=== PATIENT | female | born 1975 | race Caucasian/White ===

== ENCOUNTER 2019-04-21 12:57 | Outpatient (RCR) | payer OTHER, SELFPAY ==
[2019-04-21 13:08] VITALS: BMI 38.7
== END 2019-07-20 23:59 | disposition home or self-care (01) ==
LOC: ANHDMC 12:57
PROVIDERS: PCP Family Medicine; Visit Provider Nurse Practitioner Family
DX: E66.9 Obesity, unspecified (principal); Z71.3 Dietary counseling and surveillance
CPT/HCPCS: 97802

== ENCOUNTER 2019-08-02 04:57 | Emergency (ER) | payer BC, SELFPAY ==
[2019-08-02 05:09] VITALS: BP 135/67; PULSE 111; RESP 12; TEMP 36.6; O2SAT 97
[2019-08-02] MEDS: KETOROLAC (*BKC) 60 MG/2 ML VIAL IM (05:35)
--- NOTE | 2019-08-02 05:59 | ED.BACK ---
HPI - Back Pain/Injury General Chief Complaint: Back Pain/Injury Stated Complaint: lower back pain Time Seen by Provider: 08/02/19 05:18 Source: patient Mode of arrival: ambulatory Limitations: no limitations History of Present Illness HPI Narrative: Patient is a 44-year-old female who presents to the emergency department with complaint of left-sided sciatica. Patient reports prior history. Patient reports onset of symptoms at 4 PM yesterday. She denies any known injury. Pain is radiating down her left leg to about the knee level of her knee. She denies any numbness, weakness, or fever, or bowel/bladder dysfunction. Pain is worse with walking, certain positions, and movement. MD elicited complaint: back pain Pertinent past history: prior back pain Onset (ago): day(s) (1) Timing: constant Severity: similar to previous episodes Quality: sharp Location: left lower back Radiation: left upper leg Exacerbating factors: movement and walking Related Data Home Medications Medication Instructions Recorded Confirmed gabapentin 08/02/19 Allergies Allergy/AdvReac Type Severity Reaction Status Date / Time No Known Allergies Allergy Unknown Verified 08/02/19 06:11 Review of Systems Review of Systems: All systems reviewed & are unremarkable except as noted in HPI and below PMFSH Past Medical History Medical History (Updated 08/02/19 @ 06:13 by Deanna Flores MD) Depression Fibromyalgia Hypertension IBS (irritable bowel syndrome) Rheumatoid arthritis Surgical History Surgical History (Updated 08/02/19 @ 06:08 by Deanna Flores MD) History of tonsillectomy Social History Social History (Updated 08/02/19 @ 06:08 by Deanna Flores MD) Smoking status: Current every day smoker Tobacco type: cigarettes Exam Const: General: cooperative, no acute distress and alert Nutritional Appearance: well nourished Orientation/consciousness: patient oriented x3 Limitations: no limitations HENMT: Mouth: Yes lip normal and Yes moist mucous membranes Resp: Effort & Inspection: normal respiratory effort Auscultation: clear to auscultation bilaterally Cardio: Rate: regular rate Rhythm: regular rhythm Back/Spine/Pelvis: Thoracic/Lumbar Spine: pain with thoraco-lumbar ROM and lumbar spinal tenderness (Mild lower) Skin: General skin exam: normal color Neuro: General: patient oriented x3 Cognition (Neuro): normal cognition Speech: normal speech Motor exam (neuro): 5/5 motor strength present throughout Sensory Exam: normal sensation Deep tendon reflexes (DTR's): Right patellar reflex intensity grade: 2+, Left patellar reflex intensity grade: 2+, Right ankle reflex intensity grade: 2+ and Left ankle reflex intensity grade: 2+ Extrem: General: normal to inspection, full ROM and no clubbing, cyanosis or edema Psych: Mental Status: mental status grossly normal Affect: normal affect Attitude: cooperative Course Course Emergency Course: Patient given Toradol and Valium. Counseled on primary care follow-up to discuss physical therapy referral to help with symptom management. Vital Signs Vital signs: Vital Signs Temperature 97.8 F 08/02/19 05:09 Pulse Rate 111 H 08/02/19 05:09 Respiratory Rate 12 08/02/19 05:09 Blood Pressure 135/67 08/02/19 05:09 Pulse Oximetry 97 08/02/19 05:09 Temperature 97.8 F 08/02/19 05:09 Pulse Rate 111 H 08/02/19 05:09 Respiratory Rate 12 08/02/19 05:09 Blood Pressure 135/67 08/02/19 05:09 Pulse Oximetry 97 08/02/19 05:09 Critical Care Time Critical Care Time Critical Care Time: No Discharge Plan Discharge Clinical Impression: Sciatica Qualifiers: Laterality: left Qualified Code(s): M54.32 - Sciatica, left side Patient Disposition: Home, Self-Care Condition: Stable Instructions: Sciatica (ED) Additional Instructions: Continue home medications. May take acetaminophen 1000 mg every 6 hours as needed for pain. Amadou
[2019-08-02 06:28] VITALS: BP 131/69; PULSE 100; RESP 15; TEMP 37.1; O2SAT 98
== END 2019-08-02 06:25 | disposition home or self-care (01) ==
PROVIDERS: Emergency Provider Emergency Medicine; PCP Family Medicine
DX: M54.42 Lumbago with sciatica, left side (principal); M79.7 Fibromyalgia; I10 Essential (primary) hypertension; K58.9 Irritable bowel syndrome, unspecified; F17.210 Nicotine dependence, cigarettes, uncomplicated; M06.9 Rheumatoid arthritis, unspecified
CPT/HCPCS: 96372; 99284; J1885; J3360

== ENCOUNTER 2020-05-02 11:42 | Outpatient (CLI) | payer BC, SELFPAY ==
--- NOTE | ~2020-05-02 | XR_ITS ---
EXAMINATION: XR chest 2V DATE: 05/02/2020 12:10 INDICATION: Shortness of breath, cough, and chest pain. TECHNIQUE: Frontal and lateral views of the chest were obtained. COMPARISON: None. FINDINGS: The chest demonstrates clear lungs without pneumonia, pleural effusion, or pneumothorax. Th e heart size is normal. IMPRESSION: 1. No acute cardiopulmonary disease. Reviewed, dictated and finalized at location A. COAT WIPER
== END 2020-05-02 11:43 | disposition home or self-care (01) ==
PROVIDERS: PCP Nurse Practitioner Family
DX: R06.02 Shortness of breath (principal); U07.1 COVID-19
CPT/HCPCS: 71046

== ENCOUNTER 2023-04-04 17:20 | Emergency (ER) | payer BC, SELFPAY ==
[2023-04-04] VITALS (11 sets, daily range): BP systolic 91–113; BP diastolic 51–80; PULSE 81–109; RESP 14–22; TEMP 36.7; O2SAT 96–99
--- NOTE | ~2023-04-04 | XR_ITS ---
EXAMINATION: XR chest 1V DATE: 04/04/2023 21:53 INDICATION: Right-sided abdominal pain TECHNIQUE: frontal view of the chest was obtained. COMPARISON: Chest radiograph dated 05/02/2020 FINDINGS: Right internal jugular central venous port catheter with distal tip at the superior cavoatrial juncti on. There are few bilateral pulmonary nodules consistent with metastatic disease. No other airspace o pacities, pulmonary edema, pleural effusion or pneumothorax. The cardiomediastinal silhouette is norm al. Visualized bones and soft tissues are unremarkable. IMPRESSION: 1. A few scattered bilateral pulmonary nodules consistent with metastatic disease. No other acute car diopulmonary disease. Reviewed, dictated and finalized at location A. PICKER MACHINE OPERATOR IMPRESSION: 1. A few scattered bilateral pulmonary nodules consistent with metastatic disea se. No other acute cardiopulmonary disease.
--- NOTE | ~2023-04-04 | CT_ITS ---
EXAMINATION: CT abdomen pelvis w con DATE: 04/04/2023 21:47 INDICATION: Right-sided abdominal pain TECHNIQUE: Computed tomography (CT) of the abdomen and pelvis was performed with 100 mL Omnipaque-350 intravenous contrast. Automated exposure control and iterative reconstruction technique were employe d. The dose-length product was 701.93 mGy-cm. COMPARISON: None FINDINGS: There are multiple pulmonary nodules in the bilateral lower lungs, the largest in the left lower lobe measuring up to 1.4 cm and concerning for metastatic disease. There are multiple hypoenhancing kuldeep s in the right hepatic lobe, the largest measuring 7.2 x 5.1 cm which are also concerning for metasta tic disease. Some of the decreased attenuation the right hepatic lobe has a more branching appearance which could represent secondary partial obstruction and dilation. One of these tubular regions appea rs to communicate with the perihepatic fluid collection and could not exclude either superinfection w ith abscess or bile leak with biloma. There is a small perihepatic fluid collection, potentially subc apsular along the posterolateral margin of the right hepatic lobe. Gallbladder, pancreas and bilatera l adrenal glands are normal. Mild splenomegaly measuring 13.5 cm craniocaudal length. There is a smal l metallic density situated between the head of the pancreas and the gastric pylorus potentially an e mbolization coil along the gastroduodenal artery. Bilateral kidneys are normal. There is a small fill ing defect with central calcification measuring 2 cm in length and up to 8 mm in maximal diameter wit hin the infrarenal inferior vena cava suspicious for thrombosis. Bladder is normal. T-shaped IUD in e xpected position within the anteverted uterus. Bilateral ovarian cysts/follicles, the largest on the right measuring 3.3 cm. Normal appendix. No bowel obstruction. There is asymmetric rectal wall thicke nanda which raises concern for malignancy. There are few mildly prominent perirectal lymph nodes measu ring up to 7 mm in maximal diameter which are suspicious for local metastatic disease. No other patho logically enlarged abdominal or pelvic lymphadenopathy. Moderate lumbar spondylosis. No suspicious ly tic or blastic bone lesions. IMPRESSION: 1. Multiple hypodense enhancing masses in the right hepatic lobe and multiple bilateral pulmonary nod ules concerning for metastatic disease. There is asymmetric wall thickening of the rectum with a few mildly prominent perirectal lymph nodes which concerning for a primary colon cancer and local metasta tic disease. 2. Small perihepatic fluid collection along the subdiaphragmatic posterolateral right hepatic lobe wh ich appears to communicate with a more branching pattern of of low attenuation in the right hepatic l obe which also raises possibility of either superinfection with abscess or biliary ductal dilation wi th leakage subcapsular biloma. Percutaneous access of the perihepatic fluid collection would be probl ematic as it would likely require transgression of the pleura and diaphragm. Reviewed, dictated and finalized at location A. FIGHTER TYPE ONE IMPRESSION: 1. Multiple hypodense enhancing masses in the right hepatic lobe and multiple b ilateral pulmonary nodules concerning for metastatic disease. There is asymmetr ic wall thickening of the rectum with a few mildly prominent perirectal lymph n odes which concerning for a primary colon cancer and local metastatic disease. 2. Small perihepatic fluid collection along the subdiaphragmatic posterolateral right hepatic lobe which appears to communicate with a more branching pattern of of low attenuation in the right hepatic lobe which also raises possibility o f either superinfection with abscess or biliary ductal dilation with leakage edward bcapsular biloma. Percutaneous ac
[2023-04-04 17:44] LABS: Basophils Absolute Auto 0.1 K/mm3 (0.0-0.1); Basophils Percent Auto 0.3 % (0.2-1.2); Eosinophils Absolute Auto 0.1 K/mm3 (0-0.3); Eosinophils Percent Auto 0.5 % (0-4.4); Hematocrit 37.3 % (37.0-47.0); Hemoglobin 11.7 g/dL (12.0-15.0); Immature Granulocyte Absolute 0.11 K/mm3 (0.00-0.031); Immature Granulocyte Percent A 0.6 % (0-0.5); Lymphocytes Absolute Auto 1.43 K/mm3 (0.9-3.2); Lymphocytes Percent Auto 7.9 % (18.3-44.2); Mean Corpuscular HGB Conc 31.4 g/dl (32-36); Mean Corpuscular Hemoglobin 31.5 pg (26-34); Mean Corpuscular Volume 100.5 fl (80-100); Mean Platelet Volume 9.5 fl (7.4-10.4); Monocytes Absolute Auto 1.2 K/mm3 (0.1-0.6); Monocytes Percent Auto 6.5 % (2.6-8.5); Neutrophils Absolute Auto 15.3 K/mm3 (1.3-6.7); Neutrophils Percent Auto 84.2 % (45.5-73.1); Platelet Count Result 306 k/mm3 (150-375); Red Blood Count 3.71 M/mm3 (4.2-5.4); Red Cell Distribution Width 16.3 % (11.5-14.5); White Blood Count 18.2 K/mm3 (4.5-10.0)
[2023-04-04 17:58] LABS: Alanine Aminotransferase 26 U/L (6-35); Albumin Level 4.8 g/dL (3.5-5.1); Alkaline Phosphatase 134 U/L (38-126); Anion Gap 14 mmol/L (8-16); Aspartate Amino Transferase 30 U/L (14-36); Bilirubin,Total 0.9 mg/dL (0.2-1.3); Blood Urea Nitrogen 8 mg/dL (7-17); Calcium 9.6 mg/dL (8.4-10.2); Carbon Dioxide 20 mmol/L (22-30); Chloride 104 mmol/L (98-107); Estimated CRCL calculation 121 ml/min; Estimated Glomerular Filt Rate > 60; Glucose 131 mg/dL (65-110); Lipase 68 U/L (23-300); Potassium 3.6 mmol/L (3.4-5.0); Sodium 138 mmol/L (137-145)
[2023-04-04 18:25] LABS: Appearance Urine Cloudy (Clear); Bacteria Urine 4+ /hpf; Bilirubin Urine Negative (Negative); Blood Urine Trace (Negative); Color Urine Yellow (Yellow); Glucose Urine UA Negative (Negative); Ketones Urine 2+ mg/dL (Negative); Leukocyte Esterase Ur 1+ LEU/UL (Negative); Nitrate Urine Positive (Negative); Non Pathogenic Casts 0-2; Protein Urine Negative (Negative); Squamous Epithelial Cell Urine Occasional /hpf (Few); Urobilinogen Urine 0.2 mg/dL (<2.0); WBC Urine 21-50 /hpf; pH Urine 6.5 (5.0-9.0)
[2023-04-04 18:30] LABS: Add Urine Microscopic? YES
--- NOTE | 2023-04-04 21:18 | ED.ABDPAIN ---
HPI - Abdominal Pain General Chief Complaint: Abdominal Pain Stated Complaint: ab pain Time Seen by Provider: 04/04/23 20:41 Source: patient Limitations: no limitations History of Present Illness HPI narrative: Patient is a 47-year-old female presents to the emergency department complaining of abdominal pain. Patient states she was resting with the nothing of the ordinary preceding it and at approximately 3:00 p.m. she developed this pain in the right side of her abdomen, diffusely throughout the right-sided 60 radiate to her right back, sharp, waxes and wanes, worse whenever she takes a deep breath in or walks, denies any history is pain in the past, symptoms getting worse prior to coming in and seems to be slightly improving now and bronchi she is laying the patient is to some recent dysuria in addition to chronic UTIs and chronic urinary urgency. Patient admits to history of IBS and colon cancer for which she has stage IV and is no longer on to clarify his last chemotherapy was in July and is known to moves are intact dismissed from does not have any further plans for interventions colon cancer. Patient denies melena, hematochezia, hematuria, chest pain, cough, sore throat, nasal congestion, numbness weakness, recent injuries, recent illness, fevers ground. He patient is to chronic diarrhea without any recent changes. Related Data Home Medications Medication Instructions Recorded Confirmed gabapentin 100 mg capsule 08/02/19 Allergies Allergy/AdvReac Type Severity Reaction Status Date / Time No Known Allergies Allergy Unknown Verified 08/02/19 06:11 Review of Systems Review of Systems: A 10 system review of systems was completed on the patient and is negative except for what is stated in the HPI. Nursing and ancillary documentation was reviewed. [facility] [place] Past Medical History Medical History (Updated 04/05/23 @ 01:09 by Mitchell Burger DO) Depression Fibromyalgia Hypertension IBS (irritable bowel syndrome) Rheumatoid arthritis Surgical History Surgical History (Updated 08/02/19 @ 06:08 by Deanna Flores MD) History of tonsillectomy Social History Social History (Updated 08/02/19 @ 06:08 by Deanna Flores MD) Smoking status: Current every day smoker Tobacco type: cigarettes Comments At time of signature, I have reviewed and agree with nursing past medical, surgical, social and family history unless otherwise noted. Please see the nursing chart for further information. There is no relevant family history pertinent to the presenting complaint. Exam Narrative: CONST: Mild acute distress. Well nourished. HENMT: Head is normocephalic and atraumatic. Dry mucous membranes. No posterior oropharynx erythema. EYES: No conjunctival icterus, injection, or pallor. PERRL. NECK: No meningeal signs. RESP: Able to speak in full sentences. Normal respiratory effort. CTAB. CARDIO: borderline tachycardic rate. Regular rhythm. 2+ DP and radial pulses bilaterally. GI: Nondistended. Soft. moderate tenderness to palpation throughout the right upper quadrant or right lower quadrant. No rebound or guarding or rigidity. Positive Buck sign. No McBurney's point tenderness to palpation. Negative psoas sign and obturator sign. No palpable masses or hernias. : No CVA tenderness to palpation. SKIN: No rashes or lesions noted on exposed skin. NEURO: Oriented x3. Moves all extremities. EXTREM/MSK/BACK: No pedal edema. PSYCH: Normal affect. Course Vital Signs Vital signs: Vital Signs Temperature 98.1 F 04/04/23 17:34 Pulse Rate 109 H 04/04/23 17:34 Respiratory Rate 22 H 04/04/23 17:34 Blood Pressure 110/80 04/04/23 17:34 Pulse Oximetry 99 04/04/23 17:34 Temperature 98.1 F 04/04/23 17:34 Pulse Rate 92 04/05/23 06:22 Respiratory Rate 13 04/05/23 06:22 Blood Pressure 100/59 L 04/05/23 05:46 Pulse Oximetry 97 04/05/23 06:22 [facility] - Abdom
--- NOTE | 2023-04-04 21:29 | ECG_ITS ---
Measurements Intervals [place] Rate: 98 P: 14 GA: 147 QRS: 47 QRSD: 74 T: 12 QT: 329 QTc: 420 Interpretive Statements SINUS RHYTHM LOW QRS VOLTAGE IN PRECORDIAL LEADS BORDERLINE T WAVE ABNORMALITY- ANTEROLAT/INF LEADS BORDERLINE ECG NO PREVIOUS ECG AVAILABLE FOR COMPARISON Electronically Signed On 04-05-2023 7:39:56 [employer] by Gabino Renteria D.O.
[2023-04-04] MEDS: MORPHINE SULFATE (*CRX) 4 MG/ML INJ IV PUSH (21:39)
[2023-04-04] MEDS: SODIUM CHLORIDE 0.9% IV 1,000 ML 999 ML IV CONT (21:40)
[2023-04-04 22:58] LABS: INR 1.1; Prothrombin Time 14.7 Seconds (11.1-14.7)
[2023-04-04 22:59] LABS: Partial Thromboplastin Time 29.3 SECONDS (22.3-36.8)
[2023-04-04 23:05] LABS: Lactic Acid Reflex 0.9 mmol/L (0.7-2.0)
[2023-04-04 23:08] LABS: CRP 2.7 mg/dL (<1.0)
[2023-04-04 23:16] LABS: Troponin I < 0.012 ng/mL (0.000-0.034)
--- NOTE | 2023-04-04 23:20 | PC.NURSE ---
Assumed care of pt. Report from GLEN Martinez. Pt resting quietly per cart in nad at this time. Updated pt/ on plan of care.
[2023-04-04 23:23] LABS: Influenza A QL RT-PCR Negative (Negative); Influenza B QL RT-PCR Negative (Negative); SARS-CoV-2 RNA PCR Negative (Negative)
[2023-04-05] VITALS (29 sets, daily range): BP systolic 98–111; BP diastolic 48–76; PULSE 70–92; RESP 7–21; TEMP 36.2; O2SAT 94–100
--- NOTE | 2023-04-05 00:05 | PC.NURSE ---
Spoke with Thao at [facility] transfer center. Awaiting room assignment.
--- NOTE | 2023-04-05 00:44 | PC.NURSE ---
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 Requested assisted getting up to restroom. Once this RN in room, found pt sitting on chair in room stating that she is unable to walk to restroom due to having to urinate. BSC provided for pt. Successful urination. Pt assisted back to bed and reconnected to monitors. Pt and family given update on transfer situation.
--- NOTE | 2023-04-05 00:46 | PC.NURSE ---
Pt did also report pain 7/10 at this time. States it is aggravated from moving around. Declines pain meds at this time. Explained to pt to push call light if she changes her mind. Pt verbalized understanding.
--- NOTE | 2023-04-05 01:10 | PC.NURSE ---
Pt and asking why pt is being transferred. Requested Dr Burger to see pt to give them update.
[2023-04-05] MEDS: metroNIDAZOLE 500 MG/ISO 100ML 500 MG/100 ML BAG 100 MG IVPB ×2 (01:18→09:43)
[2023-04-05] MEDS: SODIUM CHLORIDE 0.9% IV 1,000 ML 999 ML IV CONT (01:19)
[2023-04-05] MEDS: MORPHINE SULFATE (*CRX) 4 MG/ML INJ IV PUSH ×3 (02:56→15:02)
--- NOTE | 2023-04-05 07:21 | PC.NURSE ---
Report to GLEN Gomez
[2023-04-05] MEDS: ONDANSETRON INJ 4 MG/2 ML VIAL IV PUSH (07:33)
--- NOTE | 2023-04-05 13:52 | PC.NURSE ---
accepted to [facility] Dr [phone]
== END 2023-04-05 15:46 | disposition short-term general hospital (02) ==
PROVIDERS: Emergency Medicine; Emergency Provider Student in an Organized Health Care Education/Training Program; PCP Nurse Practitioner Family
DX: K65.9 Peritonitis, unspecified (principal); N39.0 Urinary tract infection, site not specified; D72.829 Elevated white blood cell count, unspecified; R10.9 Unspecified abdominal pain; C18.9 Malignant neoplasm of colon, unspecified; C79.9 Secondary malignant neoplasm of unspecified site; I10 Essential (primary) hypertension; K58.9 Irritable bowel syndrome, unspecified; M79.7 Fibromyalgia; M06.9 Rheumatoid arthritis, unspecified; F17.210 Nicotine dependence, cigarettes, uncomplicated; R91.8 Other nonspecific abnormal finding of lung field; R16.0 Hepatomegaly, not elsewhere classified; R94.31 Abnormal electrocardiogram [ECG] [EKG]
CPT/HCPCS: 36415; 71045; 74177; 80053; 81001; 81025; 83605; 83690; 83735; 84484; 85025; 85610; 85730; 86140; 87040; 87077; 87086; 87186; 87636; 93005; 96361; 96365; 96366; 96367; 96375; 96376; 99285; J0696; J1836; J2270; J2405; J7030; Q9967